=== PATIENT | male | born 1970 | race Two or more races ===

== ENCOUNTER 2020-03-02 07:49 | Inpatient (IN) | payer OTHER ==
[~2020-03-02 07:49] MED LIST: CANDESAR PO
[2020-03-03] MEDS ORDERED: MIRALAX17 GM PO (15:12)
[2020-03-03] MEDS ORDERED: NEURONTIN300 MG PO (15:12)
[2020-03-03] MEDS ORDERED: ULTRAM50 MG PO (15:12)
[2020-03-03] MEDS ORDERED: TYLENOL ARTHRI650 MG PO (15:12)
== END 2020-03-03 16:14 | disposition home or self-care (01) | DRG 352 ==
LOC: CIR.AMB 07:49 → O/R 13:45 → SURG 13:45 → CIR.AMB 17:15 → SURG 03-03 16:14
PROVIDERS: ADMIT Surgery; ATTEND Surgery
PROC: 0WQF4ZZ Repair Abdominal Wall, Percutaneous Endoscopic Approach (ICD-10-PCS; 2020-03-02)
PROC: 0YU64JZ Supplement Left Inguinal Region with Synthetic Substitute, Percutaneous Endoscopic Approach (ICD-10-PCS; principal; 2020-03-02 17:15)
DX: K40.90 Unilateral inguinal hernia, without obstruction or gangrene, not specified as recurrent (principal); K42.9 Umbilical hernia without obstruction or gangrene; I10 Essential (primary) hypertension